=== PATIENT | male | born 1985 | race Caucasian/White ===

== ENCOUNTER 2016-10-23 21:03 | Emergency (ER) | payer BC, OTHER ==
[2016-10-23 21:20] VITALS: O2SAT 99
--- NOTE | 2016-10-23 21:49 | C.PDOC ---
History Of Present Illness 30 year old male who presents to the ER with a complaint of bright red blood in the rectum associated with hard stools for the past 3 days. Denies any hemorrhoids or abdominal pain. Time Seen by Provider: 10/23/16 21:36 Chief Complaint (Nursing): GI Problem History Per: Patient History/Exam Limitations: no limitations Onset/Duration Of Symptoms: Days Current Symptoms Are (Timing): Still Present Number Of Bleeding Episodes: Multiple: Amount of Blood Loss: Small Quality Of Discomfort: Unable To Describe Associated Symptoms: Rectal Bleeding. denies: Nausea, Vomiting, Diarrhea, Hematemesis Modifying Factors: None Recent travel outside of the [place]: No Past Medical History Reviewed: Historical Data, Nursing Documentation, Vital Signs Vital Signs: Last Vital Signs Temp 97.9 F 10/23/16 21:57 Pulse 61 10/23/16 21:57 Resp 17 10/23/16 21:57 BP 119/68 10/23/16 21:57 Pulse Ox 99 10/23/16 21:57 - Medical History PMH: No Chronic Diseases Surgical History: No Surg Hx Family History: States: Unknown Family Hx - Social History Hx Alcohol Use: No Hx Substance Use: No - Immunization History Hx Tetanus Toxoid Vaccination: No Hx Influenza Vaccination: No Hx Pneumococcal Vaccination: No Review Of Systems Constitutional: Negative for: Fever, Chills, Weight loss Gastrointestinal: Positive for: Hematochezia, Rectal Pain. Negative for: Nausea , Vomiting, Abdominal Pain, Diarrhea Physical Exam - Physical Exam Appears: Non-toxic, No Acute Distress Skin: Normal Color, Warm, Dry Head: Atraumatic, Normacephalic Oral Mucosa: Moist Chest: Symmetrical, No Tenderness Cardiovascular: Rhythm Regular, No Murmur Respiratory: Normal Breath Sounds, No Rales, No Rhonchi, No Wheezing Gastrointestinal/Abdominal: Soft, No Tenderness Rectal: No Blood Streaked Stool, Hemorrhoids (Negative external, Positive internal), Other (Scant light brown stool) Neurological/Psych: Oriented x3, Normal Speech, Normal Cognition ED Course And Treatment O2 Sat by Pulse Oximetry: 99 (Room air) Pulse Ox Interpretation: Normal Medical Decision Making Medical Decision Making: BRBPR streaked on hard stools for 3 days. no cardiac s/s normal VS internal hemorroids, no BRBPR now Defer w/u with informed consent with pt to f/u with GI this week. stool softners and brief BM's educated. Disposition Doctor Will See Patient In The: Office Counseled Patient/Family Regarding: Studies Performed, Diagnosis - Disposition Referrals: Adryan Graff Jr., MD [Medical Doctor] - Jose Alfredo Rust MD [IM] - Disposition: HOME/ ROUTINE Disposition Time: 21:48 Condition: GOOD Additional Instructions: esuavesantes de los heces 2 veces al arlen Come mas frutas y verduras crudas diarios. Sigue con Dr Rust- Gastroenterolo- para evaluacion' harpal semana Sigue con Dr. Graff- [facility], para tener [facility]on [facility]. Prescriptions: Docusate [Colace] 100 mg PO BID #60 cap Instructions: Hemorrhoids (ED), Rectal Bleeding (ED) Forms: [employer] (Malay) Print Language: GREENLANDIC - Clinical Impression Clinical Impression: Hemorrhoids - Scribe Statement The provider has reviewed the documentation as recorded by the Scribe Sergo Tucker All medical record entries made by the Scribe were at my direction and personally dictated by me. I have reviewed the chart and agree that the record accurately reflects my personal performance of the history, physical exam, medical decision making, and the department course for this patient. I have also personally directed, reviewed, and agree with the discharge instructions and disposition.
[2016-10-23 22:16] VITALS: BP 119/68; PULSE 61; RESP 17; TEMP 97.9
== END 2016-10-23 22:01 | disposition home or self-care (01) ==
LOC: C.ER 21:03
DX: K64.8 Other hemorrhoids (principal)
CPT/HCPCS: 99283; G0328